=== PATIENT | female | born 1950 | race Caucasian/White ===

== ENCOUNTER 2019-08-18 08:36 | Emergency (ER) | payer MEDICARE, OTHER ==
[2019-08-18] MEDS ORDERED: Morphine 4 MG/ML VIAL ONE ×2 (09:15→09:16)
[2019-08-18] MEDS ORDERED: Ondansetron ODT 8 MG TAB ONE (09:15)
--- NOTE | 2019-08-18 10:25 | RAD ---
RIGHT KNEE 4 VIEWS: Date: 08/18/2019 HISTORY: Fall. Right knee pain. FINDINGS/IMPRESSION: No acute fracture or dislocation is seen. POS: [facility]
--- NOTE | 2019-08-18 10:25 | RAD ---
RIGHT SHOULDER 3 VIEWS: Date: 08/18/2019 HISTORY: Fall, right shoulder pain. FINDINGS/IMPRESSION: There is a fracture involving the right greater tuberosity without significant displacement. No dislo cation is seen. POS: [facility]
--- NOTE | 2019-08-18 10:26 | RAD ---
RIGHT HUMERUS 2 VIEWS: Date: 08/18/2019 HISTORY: Fall, right shoulder pain. FINDINGS/IMPRESSION: There is a fracture involving the greater tuberosity without significant displacement. POS: [facility]
== END 2019-08-18 11:00 | disposition home or self-care (01) ==
LOC: ERS 08:36
DX: S42.251A Displaced fracture of greater tuberosity of right humerus, initial encounter for closed fracture (principal); M25.561 Pain in right knee; E03.9 Hypothyroidism, unspecified; Z79.899 Other long term (current) drug therapy; W01.0XXA Fall on same level from slipping, tripping and stumbling without subsequent striking against object, initial encounter; Y92.091 Bathroom in other non-institutional residence as the place of occurrence of the external cause
CPT/HCPCS: 96372; J2270; Q0162